=== PATIENT | female | born 1990 | race African-American/Black ===

== ENCOUNTER 2018-12-11 14:31 | Emergency (ER) | payer SELFPAY ==
[~2018-12-11] VITALS: Ht 162.6 cm; Wt 91.6 kg
[2018-12-11 15:23] LABS: BASOPHILS # (AUTO) 0.1 (0.0-0.1); BASOPHILS % 0.6 % (0.0-1.0); EOSINOPHILS # (AUTO) 0.2 (0.0-0.4); EOSINOPHILS % 1.3 % (0.0-6.0); HEMATOCRIT 35.3 % (34.2-44.1); HEMOGLOBIN 11.3 g/dL (12.0-16.0); LYMPHOCYTES # (AUTO) 3.3 (1.0-3.2); LYMPHOCYTES % 28.4 % (18.0-39.1); MEAN CORPUSCULAR HEMOGLOBIN 26.8 pg (28-32); MEAN CORPUSCULAR VOLUME 83.6 fL (81-99); MONOCYTES # (AUTO) 0.6 (0.2-0.8); MONOCYTES % 5.2 % (4.4-11.3); NEUTROPHILS # (AUTO) 7.4 (2.1-6.9); NEUTROPHILS % 64.2 % (38.7-80.0); PLATELET COUNT 269 x10e3/uL (140-360); RED BLOOD COUNT 4.22 x10e6/uL (3.6-5.1); RED CELL DISTRIBUTION WIDTH 14.4 % (11.7-14.4)
[2018-12-11 15:32] LABS: BILIRUBIN,URINE NEGATIVE (NEGATIVE); CLARITY,URINE SL CLOUDY (CLEAR); COLOR,URINE YELLOW (YELLOW); KETONES,URINE NEGATIVE (NEGATIVE); LEUKOCYTE ESTERASE ,URINE NEGATIVE (NEGATIVE); NITRITE,URINE NEGATIVE (NEGATIVE); PREGNANCY TEST, URINE NEGATIVE (NEGATIVE); PROTEIN,URINE DIPSTICK NEGATIVE (NEGATIVE); URINE UROBILINOGEN 1 mg/dL (0.2 - 1)
--- OUTSIDE RECORDS SUMMARY | 2018-12-11 16:05 | XMS REPORT ---
Author Author [facility] Address Unknown Phone Unavailable Care Team Providers Care Beamer Operator Name Role Phone Unavailable Unavailable Problems This patient has no known problems. Allergies, Adverse Reactions, Alerts This patient has no known allergies or adverse reactions. Medications This patient has no known medications. Encounters Start Date/Time End Date/Time Encounter Type Admission Type Attending [facility] Care Facility Care Department Encounter ID 2016-11-18 07:18:21 2016-11-18 07:18:21 Emergency [facility] [id number] 2016-11-18 05:08:30 2016-11-18 05:08:30 Emergency [facility] [id number]
--- OUTSIDE RECORDS SUMMARY | 2018-12-11 16:05 | XMS REPORT ---
Author Author Admin, [place] Organization [facility] Address Unknown Phone Unavailable Allergies, Adverse Reactions, Alerts Allergy Name Reaction Description Start Date Severity Status Provider LACTULOSE hives Critical Active Aliyah Dahl RECORD LIBRARIAN Conditions or Problems Problem Name Problem Code Onset Date Status Entry Date Provider Comment Standard Description Annotate 10 weeks gestation of Active Sandra Maradiaga MD SUPERVISION, NORMAL FIRST V22.0 Active Sandra Maradiaga MD Supervision of normal first OBESITY 278.00 Active Aliyah Dahl RECORD LIBRARIAN Obesity, unspecified [employer] well woman exam ICD-V72.31 Inactive Sandra Maradiaga MD Missed period ICD-626.8 Inactive Sandra Maradiaga MD Hair loss ICD-704.00 Inactive Sandra Maradiaga MD Obesity ICD-278.00 Inactive Sandra Maradiaga MD Polycystic ovaries ICD-256.4 Inactive Sandra Maradiaga MD Weight gain ICD-783.1 Inactive Sandra Maradiaga MD CONSTIPATION UNSPECIFIED ICD-564.00 Inactive Sandra Maradiaga MD SCREENING, DIABETES MELLITUS V77.1 Inactive Kira Khan MD Screening for diabetes mellitus SCREENING, DIABETES MELLITUS ICD-V77.1 Inactive Kira Khan MD IRREGULAR MENSTRUAL CYCLE ICD-626.4 Inactive Sandra Maradiaga MD PELVIC PAIN ICD-789.09 Inactive Sandra Maradiaga MD LEUKOCYTOSIS ICD-288.60 Inactive Sandra Maradiaga MD AMENORRHEA ICD-626.0 Inactive Sandra Maradiaga MD ANXIETY ICD-300.00 Inactive Sandra Maradiaga MD BACTERIAL VAGINITIS 616.10 Inactive Aliyah Dahl RECORD LIBRARIAN Vaginitis and vulvovaginitis, unspecified BACTERIAL VAGINITIS ICD-616.10 Inactive Aliyah Dahl RECORD LIBRARIAN CONSTIPATION UNSPECIFIED ICD-564.00 Inactive Sandra Maradiaga MD DEPRESSION ICD-311 Inactive Sandra Maradiaga MD HYPERTENSION ICD-401.1 Inactive Sandra Maradiaga MD HYPOGLYCEMIA ICD-251.2 Inactive Sandra Maradiaga MD WELL WOMAN ICD-V72.31 Inactive Sandra Maradiaga MD [employer] well woman exam V72.31 Resolved Sandra Maradiaga MD Routine gynecological examination Missed period 626.8 Resolved Sandra Maradiaga MD Other disorders of menstruation and other abnormal bleeding from female genital tract Hair loss 704.00 Resolved Sandra Maradiaga MD Alopecia, unspecified Obesity 278.00 Resolved Sandra Maradiaga MD Obesity, unspecified Polycystic ovaries 256.4 Resolved Sandra Maradiaga MD Polycystic ovaries Weight gain 783.1 Resolved Sandra Maradiaga MD Abnormal weight gain CONSTIPATION UNSPECIFIED 564.00 Resolved Sandra Maradiaga MD Constipation, unspecified IRREGULAR MENSTRUAL CYCLE 626.4 Resolved Sandra Maradiaga MD Irregular menstrual cycle PELVIC PAIN 789.09 Resolved Sandra Maradiaga MD Abdominal pain, other specified site; multiple sites LEUKOCYTOSIS 288.60 Resolved Sandra Maradiaga MD Leukocytosis, unspecified AMENORRHEA 626.0 Resolved Sandra Maradiaga MD Absence of menstruation ANXIETY 300.00 Resolved Sandra Maradiaga MD Anxiety state, unspecified CONSTIPATION UNSPECIFIED 564.00 Resolved Sandra Maradiaga MD Constipation, unspecified DEPRESSION 311 Resolved Sandra Maradiaga MD Depressive disorder, not elsewhere classified HYPERTENSION 401.1 Resolved Sandra Maradiaga MD Benign essential hypertension WELL WOMAN V72.31 03.04.2009 Resolved Sandra Maradiaga MD Routine gynecological examination HYPOGLYCEMIA 251.2 2007 Resolved Sandra Maradiaga MD Hypoglycemia, unspecified Medication List Medication Instructions Start Date Stop Date Generic Name NDC Status Provider Patient Instruction VITAFOL ULTRA 29-0.6-0.4-200 MG ORAL CAPSULE take 1 capsule by mouth daily PRENAT-FE [id number] Active Sandra Maradiaga MD Active CLOMIPHENE CITRATE 50 MG ORAL TABLET 1 By Mouth Every daily for 5 day starting on 5 th day of cycle CLOMIPHENE CITRATE 50 MG ORAL TABLET 8696684 CLOMIPHENE CITRATE Inactive PROVERA 10 MG ORAL TABLET 1 By Mouth Every day PROVERA 10 MG ORAL TABLET 5423353 MEDROXYPROGESTERONE ACETATE Inactive SPRINTEC 28 0.25-35 MG-MCG ORAL TABLET 1 by mouth every day SPRINTEC 28 0.25-35 MG-MCG ORAL TABLET 102727 NORGESTIMATE-ETH ESTRADIOL Inactive COLACE 100 MG ORAL CAPSULE 1 by mouth twice a day COLACE 100 MG ORAL CAPSULE 7668685 DOCUSATE SODIUM Inactive CIPRO 500 MG ORAL TABLET 1 by mouth twice a day x 10 days CIPRO 500 MG ORAL TABLET 297175 CIPROFLOXACIN HCL Inactive LO LOESTRIN FE 1 MG-10 MCG / 10 MCG ORAL TABLET 1 tab by mouth daily. Use condoms while on antibiotics LO LOESTRIN FE 1 MG-10 MCG / 10 MCG ORAL TABLET NORETHIN-ETH ESTRAD-FE BIPHAS Inactive FLAGYL 500 MG ORAL TABLET 1 tab by mouth twice a day for 7 days FLAGYL 500 MG ORAL TABLET 412495 METRONIDAZOLE Inactive CLOMIPHENE CITRATE 50 MG ORAL TABLET 1 By Mouth Every daily for 5 day starting on 5 th day of cycle CLOMIPHENE CITRATE 33050201911 No Longer Active Sandra Maradiaga MD Active PROVERA 10 MG ORAL TABLET 1 By Mouth Every day MEDROXYPROGESTERONE ACETATE 84583739191 No Longer Active Delia Li MD Active SPRINTEC 28 0.25-35 MG-MCG ORAL TABLET 1 by mouth every day NORGESTIMATE-ETH ESTRADIOL 84851699834 No Longer Active Sandra Maradiaga MD Active COLACE 100 MG ORAL CAPSULE 1 by mouth twice a day DOCUSATE SODIUM 55830606187 No Longer Active Sandra Maradiaga MD Active CIPRO 500 MG ORAL TABLET 1 by mouth twice a day x 10 days CIPROFLOXACIN HCL 59575763234 No Longer Active Kira Khan MD Active LO LOESTRIN FE 1 MG-10 MCG / 10 MCG ORAL TABLET 1 tab by mouth daily. Use condoms while on antibiotics NORETHIN-ETH ESTRAD-FE BIPHAS 66453500714 No Longer Active Kira Khan MD Active FLAGYL 500 MG ORAL TABLET 1 tab by mouth twice a day for 7 days METRONIDAZOLE 25599096704 No Longer Active Kira Khan MD Active Advance Directives Directive Description Start Date DISCUSSED - NO DECISION MADE Vital Signs Date Name Value Unit Range Description blood pressure, diastolic 83 mm[Hg] BP chris blood pressure, systolic 119 mm[Hg] BP sys height E&M 64 [in_us] Bdy height pulse rate E&M 76 /min Heart rate respiratory rate E&M 19 /min Resp rate temperature E&M 98.9 [degF] Body temperature weight E&M 214 [lb_av] Weight Measured blood pressure, diastolic 75 mm[Hg] BP chris blood pressure, systolic 124 mm[Hg] BP sys height E&M 64 [in_us] Bdy height pulse rate E&M 71 /min Heart rate respiratory rate E&M 17 /min Resp rate temperature E&M 98.2 [degF] Body temperature weight E&M 210.50 [lb_av] Weight Measured blood pressure, diastolic 88 mm[Hg] BP chris blood pressure, systolic 132 mm[Hg] BP sys height E&M 64 [in_us] Bdy height pulse rate E&M 78 /min Heart rate respiratory rate E&M 18 /min Resp rate temperature E&M 98.1 [degF] Body temperature weight E&M 211.38 [lb_av] Weight Measured Diagnostic Results Date Name Value Unit Range Description Lab Report: CBC With Differential/Platelet, Comp. Metabolic Panel (14), ... - Serology hepatitis C antibody, serum <0.1 0.0-0.9 Lab Report: CBC With Differential/Platelet, ABO Grouping and Rho(D) Typi ... - Hematology lymphocyte count, blood, automated 2.7 X10E3/UL 10*3/mm3 0.7-3.1 Office Visit: Initial Visit RM 10 - Urinalysis pH, urine, semiquantitative 5.5 bilirubin, urine negative Lab Report: CBC With Differential/Platelet, Comp. Metabolic Panel (14), ... - Chemistry urea nitrogen, blood 9 mg/dL 6-20 creatinine, serum 0.67 mg/dL 0.57-1.00 chloride, serum 99 mmol/L 97-108 Lab Report: CBC With Differential/Platelet, ABO Grouping and Rho(D) Typi ... - Hematology mean corpuscular volume, RBC 85 fL 79-97 Lab Report: CBC With Differential/Platelet, Comp. Metabolic Panel (14), ... - Chemistry triglyceride, serum, fasting 96 mg/dL 0-149 Lab Report: CBC With Differential/Platelet, ABO Grouping and Rho(D) Typi ... - Hematology erythrocyte (RBC) count 4.06 X10E6/UL 10*6/mm3 3.77-5.28 Lab Report: CBC With Differential/Platelet, Comp. Metabolic Panel (14), ... - Chemistry Estimated Glomerular Filtration Rate (calc) 122 mL/min/1.73m2 >59 follicle stimulating hormone, serum 5.6 m[iU]/mL Lab Report: CBC With Differential/Platelet, ABO Grouping and Rho(D) Typi ... - Hematology platelet count 275 X10E3/UL 10*3/mm3 150-379 Office Visit: Initial Visit RM 10 - Urinalysis appearance, urine clear Lab Report: CBC With Differential/Platelet, Comp. Metabolic Panel (14), ... - Serology HIV-1/HIV-2 Ab, serum Non Reactive Non Reactive Lab Report: CBC With Differential/Platelet, ABO Grouping and Rho(D) Typi ... - Hematology red blood cell distribution width 15.2 % 12.3-15.4 Lab Report: CBC With Differential/Platelet, Comp. Metabolic Panel (14), ... - Chemistry protein, total, serum 7.5 g/dL 6.0-8.5 HDL cholesterol, serum 57 mg/dL >39 albumin/globulin ratio, serum 1.6 1.1-2.5 Lab Report: CBC With Differential/Platelet, ABO Grouping and Rho(D) Typi ... - Hematology eosinophils as percent of blood leukocytes 1 % Not Estab. Office Visit: Initial Visit 10 - Urinalysis glucose, urine, semiquantitative negative Lab Report: CBC With Differential/Platelet, ABO Grouping and Rho(D) Typi ... - Chemistry Absolute Neutrophils 11.1 X10E3/UL 10*3/uL 1.4-7.0 Lab Report: CBC With Differential/Platelet, ABO Grouping and Rho(D) Typi ... - Hematology basophil count, absolute 0.0 x10E3/uL 0.0-0.2 Lab Report: CBC With Differential/Platelet, ABO Grouping and Rho(D) Typi ... - Chemistry hepatitis B surface antigen Negative Negative Lab Report: CBC With Differential/Platelet, Comp. Metabolic Panel (14), ... - Chemistry alanine aminotransferase (SGPT), serum 28 U/L 0-32 LDL cholesterol, serum 125 mg/dL 0-99 Lab Report: CBC With Differential/Platelet, ABO Grouping and Rho(D) Typi ... - Hematology monocytes as percent of blood leukocytes 4 % Not Estab. Office Visit: Initial Visit RM 10 - Urinalysis nitrite, urine, semiquantitative negative Lab Report: Pap IG, rfx HPV ASCU - Lab Human Papillomavirus test result HPVNotTested Lab Report: Urine Culture, Routine, Result - Urinalysis urine culture No growth Lab Report: CBC With Differential/Platelet, Comp. Metabolic Panel (14), ... - Chemistry cholesterol, serum 201 mg/dL 100-199 Lab Report: CBC With Differential/Platelet, ABO Grouping and Rho(D) Typi ... - Hematology mean corpuscular hemoglobin concentration, RBC 32.1 G/DL % 31.5-35.7 hemoglobin, blood 11.0 g/dL 11.1-15.9 Office Visit: Initial Visit RM 10 - Urinalysis leukocyte esterase, urine, by dipstick negative Lab Report: CBC With Differential/Platelet, ABO Grouping and Rho(D) Typi ... - Hematology leukocyte count, blood 14.5 X10E3/UL 10*3/mm3 3.4-10.8 Office Visit: Initial Visit RM 10 - Urinalysis protein, urine, semiquantitative (dipstick) negative Lab Report: CBC With Differential/Platelet, ABO Grouping and Rho(D) Typi ... - Hematology hematocrit, blood 34.3 % 34.0-46.6 Lab Report: CBC With Differential/Platelet, ABO Grouping and Rho(D) Typi ... - Blood bank Rh antigen Positive Lab Report: CBC With Differential/Platelet, Comp. Metabolic Panel (14), ... - Chemistry globulin, serum 2.9 1.5-4.5 Lab Report: Testosterone, Serum, TSH Rfx on Abnormal to Free T4 - Chemistry thyroid stimulating hormone, serum 1.740 u[iU]/mL 0.450-4.500 Lab Report: CBC With Differential/Platelet, Comp. Metabolic Panel (14), ... - Chemistry albumin, serum 4.6 g/dL 3.5-5.5 very low density lipoproteins 19 mg/dL 5-40 Internal Correspondence: Care Coordination: unable to contact - Other List of providers caring for patient Cinthia Klein DO, Krysta Newman MD, Megan Michaud APRN, Sherwin Nath RN, Mallory Ramon RN, Alma Greco MA, Zohreh Prince MA, Merrill Chavis MA, Denisse Armstrong MA, [facility] Lab Report: CBC With Differential/Platelet, Lipid Panel, Chlamydia/GC, D ... - Serology rubella antibody, serum, IgG 59 Office Visit: Initial Visit RM 10 - Urinalysis urobilinogen, urine, semiquantitative (dipstick) negative Lab Report: CBC With Differential/Platelet, Comp. Metabolic Panel (14), ... - Chemistry calcium, serum 9.4 mg/dL 8.7-10.2 Lab Report: CBC With Differential/Platelet, ABO Grouping and Rho(D) Typi ... - Hematology basophils as percent of blood leukocytes 0 % Not Estab. monocyte count, blood, automated 0.6 X10E3/UL 10*3/uL 0.1-0.9 Lab Report: CBC With Differential/Platelet, Comp. Metabolic Panel (14), ... - Chemistry dehydroepiandrosterone sulfate, serum 126.6 ug/dL 110.0-431.7 urea nitrogen/creatinine ratio, serum 13 8-20 Lab Report: CBC With Differential/Platelet, ABO Grouping and Rho(D) Typi ... - Chemistry immature granulocytes, percentage of total cells, blood 0 % Not Estab. Lab Report: CBC With Differential/Platelet, Comp. Metabolic Panel (14), ... - Genetics/fertility eGFR if 140 mL/min/1.73m2 >59 Lab Report: CBC With Differential/Platelet, ABO Grouping and Rho(D) Typi ... - Hematology lymphocytes as percent of blood leukocytes 19 % Not Estab. Lab Report: CBC With Differential/Platelet, Comp. Metabolic Panel (14), ... - Chemistry estradiol, serum 46.4 pg/mL carbon dioxide, venous blood 23 mmol/L 18-29 Lab Report: CBC With Differential/Platelet, ABO Grouping and Rho(D) Typi ... - Blood bank Rh antibody Negative Negative Lab Report: CBC With Differential/Platelet, ABO Grouping and Rho(D) Typi ... - Serology rapid plasma reagin antibody, serum Non Reactive Non Reactive Lab Report: Ct, Ng, Trich vag by RAISA - Lab chlamydia DNA probe Negative Negative Lab Report: CBC With Differential/Platelet, Comp. Metabolic Panel (14), ... - Chemistry sodium, serum 137 mmol/L 134-144 Lab Report: Ct, Ng, Trich vag by RAISA - Microbiology Neisseria gonorrhoeae DNA probe Negative Negative Lab Report: CBC With Differential/Platelet, Comp. Metabolic Panel (14), ... - Chemistry hemoglobin A1C, blood, as % of total hemoglobin 5.8 % 4.8-5.6 Internal Other: - Chemistry beta HCG, urine, semiquantitative positive Lab Report: CBC With Differential/Platelet, Comp. Metabolic Panel (14), ... - Chemistry alkaline phosphatase, serum 110 U/L 39-117 Office Visit: Initial Visit 10 - Urinalysis ketones, urine, by test strip negative Lab Report: CBC With Differential/Platelet, ABO Grouping and Rho(D) Typi ... - Hematology Eosinophil Absolute Count 0.1 X10E3/UL 10*3/uL 0.0-0.4 Lab Report: Testosterone, Serum, TSH Rfx on Abnormal to Free T4 - Chemistry testosterone, total 39 ng/dL 8-48 Office Visit: Initial Visit 10 - Urinalysis specific gravity, urine 1.020 Office Visit: Initial Visit 10 - [facility] estimated delivery date by last menstrual period 03/22/2018 Lab Report: CBC With Differential/Platelet, ABO Grouping and Rho(D) Typi ... - Hematology mean corpuscular hemoglobin, RBC 27.1 pg 26.6-33.0 Lab Report: CBC With Differential/Platelet, Comp. Metabolic Panel (14), ... - Chemistry bilirubin, serum, total 0.3 mg/dL 0.0-1.2 Lab Report: CBC With Differential/Platelet, ABO Grouping and Rho(D) Typi ... - Hematology neutrophils as percent of blood leukocytes 76 % Not Estab. Lab Report: CBC With Differential/Platelet, ABO Grouping and Rho(D) Typi ... - Blood bank ABO blood group B Lab Report: CBC With Differential/Platelet, ABO Grouping and Rho(D) Typi ... - Chemistry blood glucose, 1 hour after 50 gm oral glucose 95 mg/dL 65-139 Office Visit: Initial Visit RM 10 - Urinalysis blood in urine (hemoglobin) by dipstick negative Lab Report: CBC With Differential/Platelet, Comp. Metabolic Panel (14), ... - Chemistry potassium, serum 4.5 mmol/L 3.5-5.2 blood glucose, random 89 mg/dL 65-99 aspartate aminotransferase (SGOT), serum 21 U/L 0-40 Office Visit: Initial Visit RM 10 - Urinalysis urine color yellow Lab Report: CBC With Differential/Platelet, Comp. Metabolic Panel (14), ... - Chemistry luteinizing hormone, serum 12.6 m[iU]/mL Encounters Date Encounter Provider Code Facility 10:43:50 CDT Est Patient Detailed - [id number] Sandra Maradiaga MD CPT-49579 [facility] [employer] DEVELOPER 15:01:39 CDT Est Patient Problem Focus - 09787 Delia Li MD CPT-71211 [facility] OB 13:40:23 CDT Est Patient Exp Problem - 18349 Kira Khan MD CPT-02171 [facility] 09:28:21 CDT Est Patient Exp Problem - 06673 Kira Khan MD CPT-84586 [facility] 12:34:44 CDT Est Patient Exp Problem - 68538 Kira Khan MD CPT-92241 [facility] 15:08:08 CDT Est Patient Exp Problem - 62674 Kira Khan MD CPT-69583 [facility] 15:47:07 [employer] Est Patient Problem Focus - 97669 Aliyah Dahl NP CPT-28222 [facility] 17:04:24 [employer] BROK[employer] Ofc Vst, New Level II Aliyah Tellezquez RECORD LIBRARIAN CPT-56944 [facility] Procedures Code Procedure Name Date Entry Date Standard Description CPT-90372 Handling of specimen for transfer 10:44:41 CDT CPT-84208 Venipuncture 10:44:39 CDT CPT-59419 Ultrasound of Uterus- 1st trimester 10:43:56 CDT CPT-09113 Urinalysis - Dip only - In House 10:43:56 CDT CPT-02957 Urinalysis - Dip only - In House 09:29:52 CDT CPT-81602 Est Patient Well Exam (18 - 39 Yrs) - [id number] 09:29:52 CDT CPT-81961 Urinalysis - - In House 15:08:08 CDT CPT-29806 Urinalysis - Dip only - In House 15:08:08 CDT CPT-40887 Handling of specimen for transfer 17:04:24 [employer] BROKER CPT-54227 Venipuncture 17:04:24 [employer]
[2018-12-11 17:21] LABS: BACTERIA,URINE RARE /HPF
[2018-12-11 17:22] LABS: EPITHELIAL CELLS,URINE FEW /LPF
== END 2018-12-11 18:19 | disposition home or self-care (01) ==
LOC: ER 14:31
DX: N93.9 Abnormal uterine and vaginal bleeding, unspecified (principal)
CPT/HCPCS: 36415; 81001; 81025; 85025; 99284